=== PATIENT | female | born 1960 | race Caucasian/White ===

== ENCOUNTER 2018-05-05 11:30 | Emergency (ER) | payer MEDICAID ==
[2018-05-05] MEDS: IBUPROFEN 800 MG TAB PO (11:54)
== END 2018-05-05 14:03 | disposition home or self-care (01) ==
LOC: FTE 11:30
DX: S82.831A Other fracture of upper and lower end of right fibula, initial encounter for closed fracture (principal); S80.212A Abrasion, left knee, initial encounter; S80.211A Abrasion, right knee, initial encounter; E11.9 Type 2 diabetes mellitus without complications; I10 Essential (primary) hypertension; W01.0XXA Fall on same level from slipping, tripping and stumbling without subsequent striking against object, initial encounter; Y92.9 Unspecified place or not applicable; Z79.4 Long term (current) use of insulin
CPT/HCPCS: 29505; 73562-50; 99284-25